=== PATIENT | female | born 2000 | race Two or more races ===

== ENCOUNTER 2024-11-02 11:47 | Outpatient (CLI) | payer OTHER | END 2024-11-02 11:50 | disposition home or self-care (01) | LOC: PRENATAL 11:47 | PROVIDERS: ATTEND Obstetrics & Gynecology Maternal & Fetal Medicine | DX: O26.849 Uterine size-date discrepancy, unspecified trimester (principal); O36.8130 Decreased fetal movements, third trimester, not applicable or unspecified; Z3A.35 35 weeks gestation of pregnancy ==